=== PATIENT | female | born 1980 | race Caucasian/White ===

== ENCOUNTER 2017-01-13 09:55 | Emergency (ER) | payer MEDICAID ==
[~2017-01-13] VITALS: Ht 165.1 cm; Wt 77.1 kg
[~2017-01-13 09:55] MED LIST: ACHD5005 PO; ALPR.25T PO; ALPR.5T PO; AMOX500C2 PO; AMPH20TA2 PO; ANTI15DR4 LEFT EAR; BSP10T PO; BUPR300T PO; CLIN300C3 PO; CLNZ.5T PO; CLON0.5T3 PO; CLON0.5T60 PO; CLON1TAB3 PO; CLON1TAB36 PO; CTLP20T PO; CYCL10TA9 PO; DCS100C PO; DESV50TA PO; DIVA250T2 PO; DIVA250T4 PO; DIVA500T PO; DULO60CA6 PO; ERRIN; ESCI20TA2 PO; ESCT10T; GABA800T PO; GBPN100C PO; GBPN300C PO; GBPN400C PO; HYDR-2858 PO; HYDR-34 PO; HYDR-3454 PO; HYDR-707 PO; HYDR1CAP2 PO; HYDR1TAB PO; IBP800T PO; LEVE500T6 PO; LEVO75TA6 PO; LISD30CA; LISD60CA PO; LISD70CA3 PO; LRZ1T PO; LURA40TA3 PO; LVT.025T PO; LVT.05T; LVT.05T PO; LVT.088T PO; MELA10TA2 PO; NAPR-243 PO; ONDA4TAB11 PO; OXYC-272 PO; PARO40TA47 PO; PENI500T PO; PNT40TEC PO; PREN1TAB39 PO; QUET50TA PO; SRTR100T PO; SULF1TAB35 PO; TRAM50TA2 PO; TRIH2TAB2 PO; TRM50T PO; TRZ100T PO; [UNRECOGNIZED DRUG - OTHER]; vivance
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
[2017-01-13] MEDS ORDERED: NS IV 1000 ML 1,000 ML IV SCH (12:45)
[2017-01-13] MEDS ORDERED: KETOROLAC 30 MG/ML VIAL IVP ONE (12:45)
[2017-01-13] MEDS: diphenhydrAMINE 50 MG/ML INJ (BENADRYL) IVP ONE ×2 (12:48→12:49)
[2017-01-13] MEDS ORDERED: TRAM50TA2 PO (13:09)
[2017-01-13 13:24] VITALS: BP 128/77
== END 2017-01-13 13:24 | disposition home or self-care (01) ==
LOC: EDUNIT# 09:55 → ER 09:57
DX: G43.909 Migraine, unspecified, not intractable, without status migrainosus (principal); Z87.820 Personal history of traumatic brain injury; F17.210 Nicotine dependence, cigarettes, uncomplicated
CPT/HCPCS: 99282

== ENCOUNTER 2017-01-20 16:57 | Emergency (ER) | payer MEDICAID ==
[~2017-01-20] VITALS: Ht 165.1 cm; Wt 81.6 kg
[2017-01-20 18:11] LABS: BASOPHILS % (AUTO) 0 % (0-10); EOSINOPHILS # (AUTO) 0.1 10^3/uL (0.0-0.3); EOSINOPHILS % (AUTO) 2 % (0-10); LYMPHOCYTES # (AUTO) 1.8 X 10^3 (1.0-4.0); LYMPHOCYTES % (AUTO) 21 % (12-44); MEAN CORPUSCULAR HEMOGLOBIN 30 PG (25-34); MEAN CORPUSCULAR HGB CONC 34 G/DL (32-36); MEAN CORPUSCULAR VOLUME 88 FL (80-99); MEAN PLATELET VOLUME 9.2 FL (7.4-10.4); MONOCYTES # (AUTO) 0.4 X 10^3 (0.0-1.0); MONOCYTES % (AUTO) 5 % (0-12); NEUTROPHILS # (AUTO) 5.9 X 10^3 (1.8-7.8); NEUTROPHILS % (AUTO) 72 % (42-75); PLATELET COUNT 252 10^3/uL (130-400); WHITE BLOOD COUNT 8.2 10^3/uL (4.3-11.0)
[2017-01-20 18:31] LABS: ALANINE AMINOTRANSFERASE 85 U/L (0-55); ALBUMIN 4.5 GM/DL (3.2-4.5); ALCOHOL 154 MG/DL (<10); ANION GAP 13 MMOL/L (5-14); ASPARTATE AMINO TRANSFERASE 63 U/L (5-34); BILIRUBIN,TOTAL 0.4 MG/DL (0.1-1.0); BLOOD UREA NITROGEN 8 MG/DL (7-18); BUN/CREATININE RATIO 10 (0-20); CALCIUM 8.9 MG/DL (8.5-10.1); CARBON DIOXIDE 18 MMOL/L (21-32); CHLORIDE 110 MMOL/L (98-107); CREATININE SERUM 0.78 MG/DL (0.60-1.30); GFR ESTIMATED > 60; GLUCOSE 125 MG/DL (70-105); HEMOLYSIS 10 (0-29); ICTERUS 0.3 (0-1.9); LIPEMIA 1 (0-49); POTASSIUM 3.2 MMOL/L (3.6-5.0); SALICYLATE < 5.0 MG/DL (5.0-20.0); SODIUM 141 MMOL/L (135-145); TOTAL PROTEIN 6.4 GM/DL (6.4-8.2)
[2017-01-20 18:38] LABS: ACETAMINOPHEN < 10 UG/ML (10-30)
--- NOTE | 2017-01-20 18:53 | ED Psychosocial ---
General Chief Complaint: Psych/Social Disorder Stated Complaint: SUICIDAL THOUGHTS Nursing Triage Note: Pt stating "I need a psych eval, I'm off all my meds and I'm in a dark place and feel like shooting my head off". Pt reports feeling this way for the past week. Pt reports she is an alcoholic and states when she drinks she does not take her medications. Pt reports drinking 1 pint of vodka today. Source: patient Exam Limitations: no limitations History of Present Illness Time seen by provider: 18:51 Initial Comments Initial reports of suicidality. Upon further conversation patient states "I'm not really suicidal, I'm in trouble with mitral officer, so I told her I was, but you can't go and tell her that because of hippa, right? 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 She would like to go home and get back on her psychiatric medications. Timing/Duration: getting worse Severity: moderate Allergies and Home Medications Allergies Coded Allergies: cefaclor (Unverified Allergy, Intermediate, HIVES, 01/11/11) pregabalin (Verified Adverse Reaction, Unknown, 01/20/17) Home Medications Dextroamphetamine/Amphetamine 20 Mg Tablet, 20 MG PO BID, (Reported) Gabapentin 800 Mg Tablet, 800 MG PO QID, (Reported) Levothyroxine Sodium 75 Mcg Tablet, 75 MCG PO DAILY, #30 Ref 0 Prescribed by: CANDICE DURBIN on 11/19/150 Lurasidone HCl 40 Mg Tablet, 40 MG PO DAILY, (Reported) Lurasidone HCl 40 Mg Tablet, 40 MG PO DAILY, #10 Prescribed by: ADAM MUNGUIA on 01/20/17 1900 Ondansetron 4 Mg Tab.rapdis, 4 MG PO Q6H PRN for NAUSEA/VOMITING, #10 Ref 0 Prescribed by: CANDICE DURBIN on 11/19/15 2220 Sulfamethoxazole/Trimethoprim 1 Each Tablet, 1 EACH PO BID, #14 Ref 0 Prescribed by: CANDICE DURBIN on 11/19/150 Tramadol HCl 50 Mg Tablet, 50 MG PO 4 times a day PRN for headache, #20 Prescribed by: LILIA ALFREDO on 01/13/17 1309 Trazodone Hcl 100 Mg Tab, 200 MG PO HS, (Reported) Constitutional: see HPI EENTM: see HPI Respiratory: no symptoms reported Cardiovascular: no symptoms reported Genitourinary: no symptoms reported Musculoskeletal: see HPI Skin: no symptoms reported Psychiatric/Neurological: No Symptoms Reported Past Hapdxdp-Dhthsn-Ijekmp Hx Patient Social History Alcohol Use: Regular Use Recreational Drug Use: Yes (IV meth 4 days ago) Smoking Status: Current Everyday Smoker Type Used: Cigarettes Recent Foreign Travel: No Contact w/Someone Who Travel: No Recent Infectious Disease Expo: No Recent Hopitalizations: No Immunizations Up To Date Tetanus Booster (TDap): Unknown Seasonal Allergies Seasonal Allergies: No Surgeries HX Surgeries: Yes (craniotomy for intracranial bleed) Surgeries: Hysterectomy Respiratory Hx Respiratory Disorders: Yes Respiratory Disorders: Pneumonia Cardiovascular Hx Cardiac Disorders: No Neurological Hx Neurological Disorders: Yes Neurological Disorders: Traumatic Brain Injury Reproductive System Hx Reproductive Disorders: No Sexually Transmitted Disease: No HIV/AIDS: 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 Genitourinary Hx Genitourinary Disorders: Yes Genitourinary Disorders: Kidney Stones Gastrointestinal Hx Gastrointestinal Disorders: Yes (chronic abdominal pain) Gastrointestinal Disorders: Hepatitis Musculoskeletal Hx Musculoskeletal Disorders: Yes (MISS[place]LE RIGHT HAND) Musculoskeletal Disorders: Chronic Back Pain Endocrine Hx Endocrine Disorders: Yes Endocrine Disorders: Hypothyroidsim HEENT HX ENT Disorders: Yes (chronic dental pain) Hearing Impairment: Deaf Cancer Hx Cancer: No Psychosocial Hx Psychiatric Problems: Yes (polysubstance abuse) Behavioral Health Disorders: ADD/ADHD, Anxiety, Suicide Attempts, Bipolar, Depression Integumentary HX Skin/Integumentary Disorder: No Blood Transfusions Hx Blood Disorders: Yes (HEP C) Family Medical History Significant Family History: No Pertinent Family Hx Physical Exam Vital Signs Vital Sign - Last 12Hours 01/20/17 17:14 Temp 98.1 Pulse 106 Resp 18 B/P (MAP) 133/79 Pulse Ox 98 O2 Delivery Room Air Capillary Refill : Less Than 3 Seconds General Appearance: WD/WN, no apparent distress HEENT: PERRL/EOMI, normal ENT inspection Neck: non-tender, full range of motion Respiratory: no respiratory distress, no accessory muscle use Cardiovascular: regular rate, rhythm, no murmur Gastrointestinal: normal bowel sounds, non tender, soft Neurologic/Psychiatric: alert, normal mood/affect, oriented x 3 Appearance/Memory: appropriate appearance, appropriate insight, disheveled Behavior/Eye Contact: cooperative, good eye contact, increased rate of speech ( B don't feel bad) Thoughts/Hallucinations: No delusions, No flight of ideas, No paranoid Skin: normal color Progress/Results/Core Measures Results/Orders Lab Results Laboratory Tests Test 01/20/17 17:30 01/20/17 17:58 Range/Units Urine Opiates Screen NEGATIVE NEGATIVE Urine Oxycodone Screen NEGATIVE NEGATIVE Urine Methadone Screen NEGATIVE NEGATIVE Urine Propoxyphene Screen NEGATIVE NEGATIVE Urine Barbiturates Screen NEGATIVE NEGATIVE Ur Tricyclic Antidepressants Screen NEGATIVE NEGATIVE Urine Phencyclidine Screen NEGATIVE NEGATIVE Urine Amphetamines Screen POSITIVE H NEGATIVE Urine Methamphetamines Screen POSITIVE H NEGATIVE Urine Benzodiazepines Screen NEGATIVE NEGATIVE Urine Cocaine Screen NEGATIVE NEGATIVE Urine Cannabinoids Screen NEGATIVE NEGATIVE White Blood Count 8.2 4.3-11.0 10^3/uL Red Blood Count 4.70 4.35-5.85 10^6/uL Hemoglobin 14.0 11.5-16.0 G/DL Hematocrit 41 35-52 % Mean Corpuscular Volume 88 80-99 FL Mean Corpuscular Hemoglobin 30 25-34 PG Mean Corpuscular Hemoglobin Concent 34 32-36 G/DL Red Cell Distribution Width 13.0 10.0-14.5 % Platelet Count 252 130-400 10^3/uL Mean Platelet Volume 9.2 7.4-10.4 FL Neutrophils (%) (Auto) 72 42-75 % Lymphocytes (%) (Auto) 21 12-44 % Monocytes (%) (Auto) 5 0-12 % Eosinophils (%) (Auto) 2 0-10 % Basophils (%) (Auto) 0 0-10 % Neutrophils # (Auto) 5.9 1.8-7.8 X 10^3 Lymphocytes # (Auto) 1.8 1.0-4.0 X 10^3 Monocytes # (Auto) 0.4 0.0-1.0 X 10^3 Eosinophils # (Auto) 0.1 0.0-0.3 10^3/uL Basophils # (Auto) 0.0 0.0-0.1 10^3/uL Sodium Level 141 135-145 MMOL/L Potassium Level 3.2 L 3.6-5.0 MMOL/L Chloride Level 110 H 98-107 MMOL/L Carbon Dioxide Level 18 L 21-32 MMOL/L Anion Gap 13 5-14 MMOL/L Blood Urea Nitrogen 8 7-18 MG/DL Creatinine 0.78 0.60-1.30 MG/DL Estimat Glomerular Filtration Rate > 60 BUN/Creatinine Ratio 10 0-20 Glucose Level 125 H 70-105 MG/DL Calcium Level 8.9 8.5-10.1 MG/DL Total Bilirubin 0.4 0.1-1.0 MG/DL Aspartate Amino Transf (AST/SGOT) 63 H 5-34 U/L Alanine Aminotransferase (ALT/SGPT) 85 H 0-55 U/L Alkaline Phosphatase 70 40-136 U/L Total Protein 6.4 6.4-8.2 GM/DL Albumin 4.5 3.2-4.5 GM/DL Salicylates Level < 5.0 L 5.0-20.0 MG/DL Acetaminophen Level < 10 L 10-30 UG/ML Serum Alcohol 154 H <10 MG/DL My Orders Orders - ADAM MUNGUIA APRN Cbc With Automated Diff (01/20/17 17:37) Comprehensive Metabolic Panel (01/20/17 17:37) Alcohol (01/20/17 17:37) Drug Screen Stat (Urine) (01/20/17 17:37) Ekg Tracing (01/20/17 17:37) Salicylate (01/20/17 17:37) Acetaminophen (01/20/17 17:37) Urine Bedside (01/20/17 17:37) Olanzapine Orally Dissolve Tab (Zyprexa (01/20/17 19:00) Medications Given in ED Current Medications Medications Dose Ordered Sig/Fina Route Start Time Stop Time Status Last Admin Dose Admin Olanzapine 5 mg ONCE ONCE PO 01/20/17 19:00 01/20/17 19:01 DC 01/20/17 19:03 5 MG Vital Signs/I&O Vital Sign - Last 12Hours 01/20/17 17:14 Temp 98.1 Pulse 106 Resp 18 B/P (MAP) 133/79 Pulse Ox 98 O2 Delivery Room Air Blood Pressure Mean: 97 Point of Care Testing Urine -Bedside: Negative Departure Impression Impression: Primary Impression: Noncompliance with medication regimen Additional Impression: Bipolar disorder Disposition: 01 HOME, SELF-CARE Condition: Stable Departure-Patient Inst. Decision time for Depature: 18:54 Referrals: [facility] (PCP) Primary Care Physician JENN COLLINS (Family) Primary Care Physician Patient Instructions: Bipolar Disorder Add. Discharge Instructions: 1. Return here for any concerns 2. Medication as directed 3. All discharge instructions reviewed with patient and/or family. Voiced understanding. Scripts Lurasidone HCl (Latuda) 40 Mg Tablet 40 MG PO DAILY, #10 TAB Prov: ADAM MUNGUIA APRN 01/20/17 ADAM MUNGUIA APRN Jan 20, 2017 18:52
[2017-01-20] MEDS ORDERED: OLANZapine 5 MG ODT (ZyPREXA ZYDIS) PO ONE (19:00)
[2017-01-20] MEDS ORDERED: LURA40TA3 PO (19:00)
[2017-01-20 19:05] VITALS: BP 130/72
== END 2017-01-20 19:05 | disposition home or self-care (01) ==
LOC: EDUNIT# 16:57 → ER 17:00
DX: F31.9 Bipolar disorder, unspecified (principal); F90.9 Attention-deficit hyperactivity disorder, unspecified type; F17.210 Nicotine dependence, cigarettes, uncomplicated; Z91.14 Patient's other noncompliance with medication regimen
CPT/HCPCS: 36415; 80053; 80306; 80320; 80329; 84703; 85025; 93005

== ENCOUNTER 2021-02-18 16:10 | Emergency (ER) | payer MEDICAID ==
[~2021-02-18] VITALS: Ht 165.1 cm; Wt 63.5 kg
[~2021-02-18 16:10] MED LIST changes: -SULF1TAB35 PO; +SULF1TAB38 PO
[2021-02-18] MEDS ORDERED: OXYMETAZOLINE (AFRIN) 0.05% NA 30 ML BTL STA (16:24)
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
[2021-02-18] MEDS ORDERED: PROM25TA14 PO (17:23)
[2021-02-18] MEDS ORDERED: PROMETHAZINE INJ 25 MG/ML (PHENERGAN) AMP IVP ONE (17:30)
[2021-02-18] MEDS ORDERED: PROMETHAZINE 25 MG (PHENERGAN) TAB PO ONE (17:30)
[2021-02-18] MEDS ORDERED: KETOROLAC 60 MG/2 ML VIAL IM ONE (17:30)
[2021-02-18] MEDS ORDERED: diphenhydrAMINE 25 MG TAB (BENADRYL) PO ONE (17:30)
[2021-02-18 17:41] VITALS: BP 140/105
== END 2021-02-18 17:43 | disposition home or self-care (01) ==
LOC: EDUNIT# 16:10 → ER 16:13
DX: S06.0X9A Concussion with loss of consciousness of unspecified duration, initial encounter (principal); S00.03XA Contusion of scalp, initial encounter; S50.11XA Contusion of right forearm, initial encounter; S50.12XA Contusion of left forearm, initial encounter; R04.0 Epistaxis; G89.29 Other chronic pain; M54.9 Dorsalgia, unspecified; E03.9 Hypothyroidism, unspecified; F90.9 Attention-deficit hyperactivity disorder, unspecified type; F41.9 Anxiety disorder, unspecified; F31.9 Bipolar disorder, unspecified; Z87.820 Personal history of traumatic brain injury; Z79.890 Hormone replacement therapy; Z79.891 Long term (current) use of opiate analgesic; Z79.899 Other long term (current) drug therapy; Y04.0XXA Assault by unarmed brawl or fight, initial encounter
CPT/HCPCS: 70450; 70486; 72125

== ENCOUNTER 2021-08-17 13:31 | Emergency (ER) | payer MEDICAID ==
[~2021-08-17 13:31] MED LIST changes: +PROM25TA14 PO
[2021-08-17] MEDS ORDERED: BENZ100C18 PO (15:41)
[2021-08-17] MEDS ORDERED: ONDA4TAB11 PO (15:41)
== END 2021-08-17 14:46 | disposition left against medical advice (07) ==
LOC: EDUNIT# 13:31 → ER 13:32
DX: Z20.822 Contact with and (suspected) exposure to COVID-19 (principal)

== ENCOUNTER 2021-08-17 15:07 | Emergency (ER) | payer MEDICAID ==
[~2021-08-17] VITALS: Ht 165 cm; Wt 68.0 kg
[2021-08-17] MEDS ORDERED: BENZ100C18 PO (15:41)
[2021-08-17] MEDS ORDERED: ONDA4TAB11 PO (15:41)
--- NOTE | 2021-08-17 15:43 | ED General ---
General Chief Complaint: COVID19 Suspect/Confirmed Stated Complaint: COVID POSITIVE TEST-WANTS TESTED AGAIN Source of Information: Patient Exam Limitations: No Limitations History of Present Illness Date Seen by Provider: Aug 17, 2021 Time Seen by Provider: 15:25 Initial Comments Patient to the ER with significant other and chief complaint of she was trying to get into the alcohol treatment center at [place] and has not had any symptoms of fevers chills cough shortness of breath nausea vomiting diarrhea. No known sick contacts. She had a swab for COVID and it was positive. She wants retested. She has been vaccinated by [employer] for COVID-19 but not had a booster shot. Allergies and Home Medications Allergies Coded Allergies: cefaclor (Unverified Allergy, Intermediate, HIVES, 01/11/11) pregabalin (Verified Adverse Reaction, Unknown, 01/20/17) Patient Home Medication List Home Medication List Reviewed: Yes Dextroamphetamine/Amphetamine (Adderall 20 mg Tablet) 20 Mg Tablet, 20 MG PO BID, (Reported) Entered as Reported by: PANFILO MENARD on 11/19/151952 Gabapentin (Neurontin) 800 Mg Tablet, 800 MG PO QID, (Reported) Entered as Reported by: MELITON DE JESUS on 01/16/13 1037 Levothyroxine Sodium (Levothyroxine Sodium) 75 Mcg Tablet, 75 MCG PO DAILY Prescribed by: CANDICE DURBIN on 11/19/152219 Lurasidone HCl (Latuda) 40 Mg Tablet, 40 MG PO DAILY, (Reported) Entered as Reported by: PANFILO MENARD on 11/19/151952 Lurasidone HCl (Latuda) 40 Mg Tablet, 40 MG PO DAILY Prescribed by: ADAM MUNGUIA on 01/20/17 190 Ondansetron (Ondansetron Odt) 4 Mg Tab.rapdis, 4 MG PO Q6H PRN for NAUSEA/VOMITING Prescribed by: CANDICE DURBIN on 11/19/152219 Promethazine HCl (Promethazine Tablet) 25 Mg Tablet, 25 MG PO Q6H PRN for NAUSEA/VOMITING Prescribed by: KAYKAY CRAWLEY on 02/18/21 1723 Sulfamethoxazole/Trimethoprim (Bactrim Ds Tablet) 1 Each Tablet, 1 EACH PO BID Prescribed by: CANDICE DURBIN on 4/13/16 2220 Tramadol HCl (Tramadol HCl) 50 Mg Tablet, 50 MG PO 4 times a day PRN for headache Prescribed by: LILIA ALFREDO on 01/13/17 1309 Trazodone Hcl (Desyrel 100 Mg) 100 Mg Tab, 200 MG PO HS, (Reported) Entered as Reported by: BEBA LOVELACE on 01/15/13 2316 Review of Systems Review of Systems Constitutional: No chills, No fever EENTM: No ear discharge, No hearing loss Respiratory: No cough, No short of breath Cardiovascular: No chest pain, No palpitations Gastrointestinal: No abdominal pain, No nausea Past Hrkbbhv-Abtuds-Zjypjp Hx Patient Social History Tobacco Use?: Yes Tobacco type used: Cigarettes Use of E-Cig and/or Vaping dev: No Immunizations Up To Date Tetanus Booster (TDap): Unknown Seasonal Allergies Seasonal Allergies: No Past Medical History Surgeries: Yes (craniotomy for intracranial bleed) Hysterectomy Respiratory: Yes Pneumonia Cardiac: No Neurological: Yes Traumatic Brain Injury 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 oz. 81.466274ti; 23.00 BMI Method:Stated General Appearance: No Apparent Distress, WD/WN Eyes: Bilateral Eye Normal Inspection, Bilateral Eye PERRL, Bilateral Eye EOMI HEENT: PERRL/EOMI, TMs Normal, Normal ENT Inspection, Pharynx Normal, Moist Mucous Membranes Neck: Full Range of Motion, Normal Inspection Respiratory: Lungs Clear, Normal Breath Sounds, No Accessory Muscle Use, No Respiratory Distress Progress/Results/Core Measures Suspected Sepsis SIRS Temperature: Pulse: Respiratory Rate: Blood Pressure / Mean: Results/Orders My Orders Orders - KAYKAY CRAWLEY Coronavirus Sars-Cov-2 So 2018 (08/17/21 15:34) Vital Signs/I&O Capillary Refill : Progress Note : Time: 15:29 Progress Note COVID send out Departure Impression Primary Impression: Person under investigation for COVID-19 Disposition: 01 HOME, SELF-CARE Condition: Stable Departure-Patient Inst. Decision time for Depature: 15:38 Referrals: [facility] (PCP) Primary Care Physician JENN COLLINS (Family) Primary Care Physician Patient Instructions: COVID-19 Overview Add. Discharge Instructions: Drink plenty fluids. Ondansetron 1 tablet every 6 hours necessary for nausea and or vomiting. Tessalon Perles 1 capsule every 6 hours necessary for cough. Return to the ER for oxygen saturations persistent below 90% while at rest. Expect a phone call in the next 1 to 2 days with the results of your COVID send out. If your symptoms are minimal and you not having fevers or significant cough or shortness of air by 08/23/2021 then you can go to the health department and get a COVID swab. If it is still negative and you have not had a fever for the previous 24 hours then you are off isolation. You just need to wear a mask for the next 5 days. All discharge instructions reviewed with patient and/or family. Voiced understanding. Scripts Benzonatate (TESSALON PERLES) 100 Mg Capsule 100 MG PO Q6H PRN for COUGH, #20 CAP 0 Refills Prov: KAYKAY CRAWLEY 08/17/21 Ondansetron (Ondansetron Odt) 4 Mg Tab.rapdis 4 MG PO Q6H PRN for NAUSEA/VOMITING, #8 TAB 0 Refills Prov: KAYKAY CRAWLEY 08/17/21 Work/School Note: Work Release Form Date Seen in the Emergency Department: Aug 17, 2021 Return to Work: Aug 24, 2021 Restrictions: Return-No Fever (24hrs) Other Restrictions Listed Below: Off isolation if negative COVID swab on the . Restrictions: Or mass for 5 days after off isolation. KAYKAY CRAWLEY Aug 17, 2021 15:43
[2021-08-17 15:55] VITALS: BP 136/73
== END 2021-08-17 15:55 | disposition home or self-care (01) ==
LOC: EDUNIT# 15:07 → ER 15:10
DX: Z20.822 Contact with and (suspected) exposure to COVID-19 (principal); F41.9 Anxiety disorder, unspecified; F31.9 Bipolar disorder, unspecified; F90.9 Attention-deficit hyperactivity disorder, unspecified type; E03.9 Hypothyroidism, unspecified; G89.29 Other chronic pain; M54.9 Dorsalgia, unspecified; F17.210 Nicotine dependence, cigarettes, uncomplicated; Z79.890 Hormone replacement therapy; Z79.899 Other long term (current) drug therapy
CPT/HCPCS: 87635; 99283

== ENCOUNTER 2021-08-25 16:27 | Emergency (ER) | payer MEDICAID ==
[~2021-08-25] VITALS: Ht 165 cm; Wt 66.0 kg
[~2021-08-25 16:27] MED LIST changes: +BENZ100C18 PO
[2021-08-25 16:49] VITALS: BP 128/80
[2021-08-25] MEDS ORDERED: NAPR-1071 PO (16:52)
[2021-08-25] MEDS ORDERED: DOXY100T2 PO (16:52)
--- NOTE | 2021-08-25 16:53 | ED Upper Extremity ---
General Chief Complaint: Upper Extremity Stated Complaint: BILAT HAND PAIN / SWELLING Source: patient Exam Limitations: no limitations (ADAM MUNGUIA APRN) History of Present Illness Date Seen by Provider: Aug 25, 2021 Time Seen by Provider: 16:49 Initial Comments Lateral hand swelling and right hand redness for 2 to 3 days no fever no chills no known causes. Onset: just prior to arrival Severity: moderate Pain/Injury Location: bilateral hand Method of Injury: unknown Modifying Factors: Worse With Movement (ADAM MUNGUIA APRN) Allergies and Home Medications Allergies Coded Allergies: cefaclor (Unverified Allergy, Intermediate, HIVES, 01/11/11) pregabalin (Verified Adverse Reaction, Unknown, 01/20/17) Patient Home Medication List Home Medication List Reviewed: Yes (ADAM MUNGUIA APRN) Benzonatate (Tessalon Perles) 100 Mg Capsule, 100 MG PO Q6H PRN for COUGH Prescribed by: KAYKAY CRAWLEY on 08/17/21 1541 Dextroamphetamine/Amphetamine (Adderall 20 mg Tablet) 20 Mg Tablet, 20 MG PO BID, (Reported) Entered as Reported by: PANFILO MENARD on 11/19/151952 Doxycycline Hyclate (Doxycycline Hyclate) 100 Mg Tablet, 100 MG PO BID Prescribed by: ADAM MUNGUIA on 08/25/21 165 Gabapentin (Neurontin) 800 Mg Tablet, 800 MG PO QID, (Reported) Entered as Reported by: MELITON DE JESUS on 01/16/13 1037 Levothyroxine Sodium (Levothyroxine Sodium) 75 Mcg Tablet, 75 MCG PO DAILY Prescribed by: CANDICE DURBIN on 11/19/152219 Lurasidone HCl (Latuda) 40 Mg Tablet, 40 MG PO DAILY, (Reported) Entered as Reported by: PANFILO MENARD on 11/19/151952 Lurasidone HCl (Latuda) 40 Mg Tablet, 40 MG PO DAILY Prescribed by: ADAM MUNGUIA on 01/20/17 190 Naproxen (Naprosyn) 500 Mg Tablet, 500 MG PO BID PRN for PAIN-MODERATE (5-7) Prescribed by: ADAM MUNGUIA on 08/25/21 165 Ondansetron (Ondansetron Odt) 4 Mg Tab.rapdis, 4 MG PO Q6H PRN for NAUSEA/VOMITING Prescribed by: CANDICE DURBIN on 11/19/15 2220 Ondansetron (Ondansetron Odt) 4 Mg Tab.rapdis, 4 MG PO Q6H PRN for NAUSEA/VOMITING Prescribed by: KAYKAY CRAWLEY on 08/17/21 1541 Promethazine HCl (Promethazine Tablet) 25 Mg Tablet, 25 MG PO Q6H PRN for NAUSEA/VOMITING Prescribed by: KAYKAY CRAWLEY on 02/18/21 1723 Sulfamethoxazole/Trimethoprim (Bactrim Ds Tablet) 1 Each Tablet, 1 EACH PO BID Prescribed by: CANDICE DURBIN on 11/19/15 2220 Tramadol HCl (Tramadol HCl) 50 Mg Tablet, 50 MG PO 4 times a day PRN for headache Prescribed by: LILIA ALFREDO on 01/13/17 1309 Trazodone Hcl (Desyrel 100 Mg) 100 Mg Tab, 200 MG PO HS, (Reported) Entered as Reported by: BEBA SMILEY [place] on 01/15/13 2316 Review of Systems Constitutional: see HPI EENTM: see HPI Respiratory: no symptoms reported Cardiovascular: no symptoms reported Genitourinary: no symptoms reported Musculoskeletal: no symptoms reported Skin: see HPI Psychiatric/Neurological: No Symptoms Reported (ADAM MUNGUIA APRN) Past Qcvznzi-Ntdzvu-Mbzlhr Hx Patient Social History Tobacco Use?: Yes Tobacco type used: Cigarettes Smoking Status: Current Everyday Smoker Substance use?: No Alcohol Use?: No Pt feels they are or have been: No (ADAM MUNGUIA APRN) Immunizations Up To Date Tetanus Booster (TDap): Unknown Influenza Vaccine Up-to-Date: No; Not Current First/Initial COVID19 Vaccinat: 03/28 Second COVID19 Vaccination Renato: 03/28 (ADAM MUNGUIA APRN) Seasonal Allergies Seasonal Allergies: No (ADAM MUNGUIA APRN) Past Medical History Surgery/Hospitalization HX: THYROID, BRAIN INJURY Surgeries: Yes (craniotomy for intracranial bleed) Hysterectomy Respiratory: Yes Pneumonia Cardiac: No Neurological: Yes Traumatic Brain Injury 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 Sexually Transmitted Disease: No HIV/AIDS: No Genitourinary: Yes Kidney Stones Gastrointestinal: Yes (chronic abdominal pain) Hepatitis Musculoskeletal: Yes ([place] RIGHT HAND) Chronic Back Pain Endocrine: Yes Hypothyroidsim Hearing Impairment: Deaf Cancer: No Psychosocial: Yes (polysubstance abuse) ADD/ADHD, Anxiety, Suicide Attempts, Bipolar, Depression Integumentary: No Blood Disorders: Yes (HEP C) (ADAM MUNGUIA APRN) Family Medical History No Pertinent Family Hx (ADAM MUNGUIA APRN) Physical Exam Vital Signs Vital Signs - First Documented 08/25/21 16:49 Temp 36.5 Pulse 116 Resp 20 B/P (MAP) 128/80 (96) Pulse Ox 98 O2 Delivery Room Air (ALBERT SOTOMAYOR MD) Vital Signs Capillary Refill : (ADAM MUNGUIA APRN) Height, Weight, BMI Height: 5'5.00" Weight: 180lbs. oz. 81.198986rq; 24.00 BMI Method:Stated General Appearance: WD/WN, no apparent distress, other (Patient talks at a high rate of speed about a variety of topics, unable to sit still and quit moving. She denies methamphetamine use) HEENT: PERRL/EOMI, normal ENT inspection Neck: non-tender, full range of motion, supple Respiratory: no respiratory distress, no accessory muscle use Elbow/Forearm: normal inspection, non-tender Wrist: Yes normal inspection, Yes non-tender Hand: Right (Right hand has some slight erythema over the dorsal radial aspect, left hand has a normal appearance. Given the erythema I will put her on some doxycycline.) Neurologic/Psychiatric: alert, normal mood/affect, oriented x 3 Skin: normal color, warm/dry (ADAM MUNGUIA APRN) Progress/Results/Core Measures Results/Orders Vital Signs/I&O 08/25/21 08/25/21 16:49 16:57 Temp 36.5 36.5 Pulse 116 116 Resp 20 20 B/P (MAP) 128/80 (96) Pulse Ox 98 98 O2 Delivery Room Air Room Air (ALBERT SOTOMAYOR MD) Departure Impression Primary Impression: Soft tissue infection Disposition: 01 HOME, SELF-CARE Condition: Stable Departure-Patient Inst. Decision time for Depature: 16:51 (ADAM MUNGUIA APRN) Referrals: [facility] (PCP/Family) Primary Care Physician Patient Instructions: NO INSTRUCTIONS GIVEN Add. Discharge Instructions: 1. Antibiotics as directed. Return to ER for any concerns. Follow-up with your doctor next week. All discharge instructions reviewed with patient and/or family. Voiced understanding. Scripts Doxycycline Hyclate (Doxycycline Hyclate) 100 Mg Tablet 100 MG PO BID, #14 TAB 0 Refills Prov: ADAM MUNGUIA APRN 08/25/21 Naproxen (Naprosyn) 500 Mg Tablet 500 MG PO BID PRN for PAIN-MODERATE (5-7), #30 TAB 0 Refills Prov: ADAM MUNGUIA APRN 08/25/21 ATTENDING PHYSICIAN NOTE: I was physically present as attending physician in the emergency department during the care of this patient, but I was not directly involved in the decision making or delivery of care for this patient. (ALBERT SOTOMAYOR MD) ADAM MUNGUIA APRN Aug 25, 2021 16:52 ALBERT SOTOMAYOR MD Aug 25, 2021 19:15
== END 2021-08-25 17:00 | disposition home or self-care (01) ==
LOC: EDUNIT# 16:27 → ER 16:29
DX: M79.89 Other specified soft tissue disorders (principal); F41.9 Anxiety disorder, unspecified; F31.9 Bipolar disorder, unspecified; G89.29 Other chronic pain; M54.9 Dorsalgia, unspecified; E03.9 Hypothyroidism, unspecified; F17.210 Nicotine dependence, cigarettes, uncomplicated; Z87.820 Personal history of traumatic brain injury; Z79.899 Other long term (current) drug therapy; Z79.890 Hormone replacement therapy; Z79.891 Long term (current) use of opiate analgesic
CPT/HCPCS: 99281